=== PATIENT | female | born 1995 | race Two or more races ===

== ENCOUNTER 2018-05-07 22:13 | Emergency (ER) | payer SELFPAY ==
[2018-05-07 22:58] LABS: CLARITY,URINE TURBID; GLUCOSE,URINE NEGATIVE (NEG)
[2018-05-07 23:06] LABS: COLOR,URINE ORANGE
[2018-05-07 23:09] LABS: BACTERIA,URINE MANY /HPF (0-FEW); RBC,URINE >40 /HPF (0-2); SQUAMOUS EPITHELIAL CELL,UR FEW /LPF
[2018-05-07 23:44] LABS: NEG OBC UR NEG; POS OBC UR POS; U PREG PATIENT NEGATIVE (NEG)
== END 2018-05-08 00:01 | disposition home or self-care (01) ==
LOC: ER 05-08 00:01
DX: N39.0 Urinary tract infection, site not specified (principal)
CPT/HCPCS: 81001; 81025; 87086; 99284